=== PATIENT | female | born 1945 | race Caucasian/White ===

== ENCOUNTER 2020-06-07 19:47 | Emergency (ER) | payer MEDICARE, SELFPAY ==
[2020-06-07 19:57] VITALS: PULSE 72; RESP 18; TEMP 36.6; O2SAT 96
--- NOTE | 2020-06-07 22:57 | CTR_ITS ---
PROCEDURE INFORMATION: Exam: CT Head Without Contrast Exam date and time: 06/07/2020 10:58 PM Age: 75 years old Clinical indication: Weakness, extremity; Patient HX: Right sided paresthesia x 1 week TECHNIQUE: Imaging protocol: Computed tomography of the head without contrast. Radiation optimization: All CT scans at this facility use at least one of these dose optimization techniques: automated exposure control; mA and/or kV adjustment per patient size (includes targeted exams where dose is matched to clinical indication); or iterative reconstruction. COMPARISON: No relevant prior studies available. RADIATION DOSE METRICS: Total DLP (mGy-cm): 748.42 FINDINGS: Brain: No acute intracranial hemorrhage or mass effect. There is decreased attenuation in the periventricular white matter, likely from microvascular disease. No definite acute infarct by CT. MRI could be more sensitive/specific for detection, as clinically directed. Ventricles: Ventricle size is normal for age. Bones/joints: No definite acute skull fracture. Sinuses: Included paranasal sinuses are essentially clear. Mastoid air cells: No significant acute finding. Vasculature: Vascular calcifications in the internal carotid arteries. CT/CT head wo con* [id number] IMPRESSION: 1. No acute intracranial hemorrhage or mass effect. 2. Changes of microvascular disease. 3. No definite acute infarct by CT, see above. 4. Other findings discussed above. Radiation Dose CTDIVOL = (mGy): DLP = 748.42 (mGy-cm)
[2020-06-07 23:19] VITALS: BP 263/100; PULSE 66; RESP 14; O2SAT 97
[2020-06-07] MEDS: hyDRALAzine 20 mg/mL INJ 1 mL 10 MG IVP (23:24)
[2020-06-07] MEDS: sodium chloride 0.9% 1,000 ML 999 ML IV (23:24)
--- NOTE | 2020-06-07 23:26 | ED_ITS ---
HPI - General Adult General: Chief complaint: General Medical Stated complaint: r side weakness Time Seen by Provider: 06/07/20 22:51 Source: patient Mode of arrival: ambulatory Limitations: no limitations History of Present Illness: HPI narrative: 75-year-old female who presents with left-sided paresthesias in her hand and feet. She states this is been constant over the last week. She denies any other symptoms. She denies any headache or change in vision. She denies any weakness. She is a diabetic and states that her blood sugars have been a little erratic. She also has a history of high blood pressure and is quite hypertensive here with a blood pressure of 263/100. She denies any headache. Onset (ago): week(s) Location: upper extremity and lower extremity Relieving factors: none Exacerbating factors: none Associated symptoms: Deny chest pain, dyspnea, nausea, rash or vomiting Review of Systems Const: Denies: fever(s), chills, body aches or change in appetite Eyes: Denies: blurry vision or eye discomfort ENMT: Denies: throat pain or dental pain Card: Denies: chest pain Resp: Denies: dyspnea GI: Denies: abdominal pain, nausea, vomiting or diarrhea : Denies: dysuria Musc: Denies: neck pain or back pain Skin/Breast: Denies: rash Neuro: Reports: numbness in extremities Psych: Denies: depression El/Lymph: Denies: easy bruising All/Imm: Denies: urticaria Physical Exam Const: COMMON NORMALS: no acute distress, patient oriented x3 and healthy appearing HENMT: COMMON NORMALS: normocephalic and atraumatic HEAD & SCALP: normocephalic and atraumatic Eye: COMMON NORMALS: Equal, round and reactive pupils present and EOMs intact bilaterally PUPIL: Yes Equal, round and reactive pupils present Neck/C-Spine: COMMON NORMALS: full ROM and supple Chest: COMMONS NORMALS: normal inspection of the chest and normal palpation of entire chest wall Resp: COMMON NORMALS: normal respiratory effort, No retractions, No use of accessory muscles and clear to auscultation bilaterally AUSCULTATION: clear to auscultation bilaterally Cardio: COMMON NORMALS: regular rate, regular rhythm and No murmurs present (Cardio) RATE: regular rate RHYTHM: regular rhythm GI: COMMON NORMALS: Normal to inspection, nondistended, normoactive bowel sounds present, Soft to palpation, non-tender and no masses PALPATION: Yes Soft to palpation Extremity: COMMON NORMALS: normal to inspection and full ROM Neuro: COMMON NORMALS: patient oriented x3, moves all extremities and no focal motor deficits Psych: COMMON NORMALS: mental status grossly normal, Normal thought process present and cooperative THOUGHT PROCESS: Normal thought process present Skin: COMMON NORMALS: no rashes or lesions noted and no wounds GENERAL SKIN EXAM: no rashes or lesions noted Course Vital Signs: Vital signs: Vital Signs Temperature 98 F 06/07/20 19:57 Pulse Rate 75 06/08/20 00:56 Respiratory Rate 18 06/08/20 00:56 Blood Pressure 240/95 06/08/20 00:56 Pulse Oximetry 96 06/08/20 00:56 MDM - General Adult MDM Narrative: Medical decision making narrative: Kiana presents here with paresthesias that is been going on for weeks. Patient has no signs of acute stroke. She is hypertensive but did not take her metoprolol this evening. Her blood pressure is improving here. We will increase her dose of metoprolol at home. Informed her to take her blood pressure 3 times a day and follow-up with her primary care doctor. I informed her to return to ER if her symptoms worsens. She understands agrees to plan. Lab Data: Labs: Lab Results 06/07/20 06/07/20 Range/Units 23:20 23:20 WBC 11.6 H (4.0-10.0) 10^3/ uL RBC 4.73 (4.1-5.3) 10^6/u L Hgb 15.5 H (11.5-15.3) g/dL Hct 47.8 H (37.0-47.0) % MCV 101.1 H (81-99) fL MCH 32.8 (28.0-34.0) pg MCHC 32.4 (30.0-36.0) g/dL RDW 13.3 (12.1-15.1) % Plt Count 185 (130-400) 10^3/c mm MPV 11.9 H (7.4-10.4) fL Neut % (Auto) 49.6 % Lymph % (Auto) 39.5 % [place] % (Auto) 7.9 % Eos % (Auto) 1.8 % Baso % (Auto) 0.8 % Neut # (Auto) 5.73 (1.8-7.7) 10^3/u L Lymph # (Auto) 4.6 (0.8-4.8) 10^3/u L [place] # (Auto) 0.9 (0.2-0.9) 10^3/u L Eos # (Auto) 0.2 (0.0-0.8) 10^3/u L Baso # (Auto) 0.1 (0.0-0.1) 10^3/u L Nucleated RBC % (a uto) 0 % Nucleated RBCs # 0.0 /100WBC Sodium 138 (136-145) mmol/L Potassium 3.8 (3.5-5.1) mmol/L Chloride 101 (98-107) mmol/L Carbon Dioxide 25 (22-29) mmol/L Anion Gap 15.8 (5-19) BUN 10 (8-23) mg/dL Creatinine 0.7 (0.5-0.9) mg/dL GFR Calculation Not Reportable Glucose 100 (65-115) mg/dL Calculated Osmolal ity 282 L (285-295) mOsm/k g Calcium 9.8 (8.5-10.5) mg/dL Total Bilirubin 0.4 (0.15-1.2) mg/dL AST 41 H (0-32) U/L ALT 57 H (0-33) U/L Alkaline Phosphata se 57 (35-105) IU/L Total Protein 7.1 (6.6-8.7) g/dL Albumin 4.6 (3.5-5.2) g/dL Globulin 2.5 (1.3-4.6) g/dL Imaging Data^: CT Head: Attestation: I personally reviewed and interpreted this imaging study as follows: Radiologist's impression: [address] [address] [address] Scan Report Signed Patient: Kiana Mon Unit #: [id number] : 1945 Age/Sex: 75 / F ADM Date: 06/07/20 Loc: ER Room/Bed: Attending Dr: Ordering Provider/Ordering MD: Timur Devi MD Date of Service: 06/07/20 Procedure(s): CT head wo con* [id number] Accession Number(s): [id number] Report Number: [id number] PROCEDURE INFORMATION: Exam: CT Head Without Contrast Exam date and time: 06/07/2020 10:58 PM Age: 75 years old Clinical indication: Weakness, extremity; Patient HX: Right sided paresthesia x 1 week TECHNIQUE: Imaging protocol: Computed tomography of the head without contrast. Radiation optimization: All CT scans at this facility use at least one of these dose optimization techniques: automated exposure control; mA and/or kV adjustment per patient size (includes targeted exams where dose is matched to clinical indication); or iterative reconstruction. COMPARISON: No relevant prior studies available. RADIATION DOSE METRICS: Total DLP (mGy-cm): 748.42 FINDINGS: Brain: No acute intracranial hemorrhage or mass effect. There is decreased attenuation in the periventricular white matter, likely from microvascular disease. No definite acute infarct by CT. MRI could be more sensitive/specific for detection, as clinically directed. Ventricles: Ventricle size is normal for age. Bones/joints: No definite acute skull fracture. Sinuses: Included paranasal sinuses are essentially clear. Mastoid air cells: No significant acute finding. Vasculature: Vascular calcifications in the internal carotid arteries. CT/CT head wo con* [id number] IMPRESSION: 1. No acute intracranial hemorrhage or mass effect. 2. Changes of microvascular disease. 3. No definite acute infarct by CT, see above. 4. Other findings discussed above. Discharge Plan Discharge Patient Disposition: Home, Self-Care Clinical Impression: Paresthesia Hypertension Qualifiers: Hypertension type: essential hypertension Qualified Code(s): I10 - Essential (primary) hypertension Condition: Stable Prescriptions: New metoprolol tartrate 100 mg tablet 100 mg PO BID Qty: 60 RF: 0 Discharge Orders: Discharge Order (Routine); Ordered 06/08/20 Ordered By: Timur Devi Referrals: Kassandra Morillo RESCUE INSTRUCTOR [Primary Care Provider] - 1-3 days Discharge Diet: Advance as tolerated Discharge Activity: Resume usual activity Patient Instructions: Paresthesia (ED), Hypertension (ED) Discharge Date/Time: 06/08/20 00:57 Coding Level of Care Code ED Body Design Checker for Chg Fwd Exam Comprehensive
[2020-06-07 23:41] VITALS: BP 250/99; PULSE 72; RESP 16; O2SAT 99
[2020-06-07 23:42] LABS: Basophils # 0.1 10^3/uL (0.0-0.1); Basophils % 0.8 %; Eosinophils # 0.2 10^3/uL (0.0-0.8); Eosinophils % 1.8 %; Hematocrit 47.8 % (37.0-47.0); Hemoglobin 15.5 g/dL (11.5-15.3); Lymphocytes # 4.6 10^3/uL (0.8-4.8); Lymphocytes % 39.5 %; Mean Corpuscular HGB Conc 32.4 g/dL (30.0-36.0); Mean Corpuscular Hemoglobin 32.8 pg (28.0-34.0); Mean Corpuscular Volume 101.1 fL (81-99); Mean Platelet Volume 11.9 fL (7.4-10.4); Monocytes # 0.9 10^3/uL (0.2-0.9); Monocytes % 7.9 %; Neutrophils # 5.73 10^3/uL (1.8-7.7); Neutrophils % 49.6 %; Nucleated Red Blood Cells % 0 %; Platelet Count 185 10^3/cmm (130-400); Red Blood Count 4.73 10^6/uL (4.1-5.3); Red Cell Distribution Width 13.3 % (12.1-15.1); White Blood Count 11.6 10^3/uL (4.0-10.0)
[2020-06-07 23:54] LABS: Alanine Aminotransferase 57 U/L (0-33); Albumin Level 4.6 g/dL (3.5-5.2); Alkaline Phosphatase 57 IU/L (35-105); Anion Gap 15.8 (5-19); Aspartate Amino Transferase 41 U/L (0-32); Blood Urea Nitrogen 10 mg/dL (8-23); Calcium 9.8 mg/dL (8.5-10.5); Carbon Dioxide 25 mmol/L (22-29); Chloride 101 mmol/L (98-107); Globulin 2.5 g/dL (1.3-4.6); Glucose 100 mg/dL (65-115); Osmolality Calculated 282 mOsm/kg (285-295); Potassium 3.8 mmol/L (3.5-5.1); Sodium 138 mmol/L (136-145); Total Bilirubin 0.4 mg/dL (0.15-1.2); Total Protein 7.1 g/dL (6.6-8.7)
[2020-06-08] MEDS: metoprolol tartrate 50 mg Tablet PO (00:53)
[2020-06-08 00:56] VITALS: BP 240/95; PULSE 75; RESP 18; O2SAT 96
== END 2020-06-08 00:57 | disposition home or self-care (01) ==
PROVIDERS: Emergency Provider Emergency Medicine; PCP Nurse Practitioner
DX: R20.2 Paresthesia of skin (principal); I10 Essential (primary) hypertension
CPT/HCPCS: 12345; 36415; 70450; 80053; 85025; 96361; 96374; 96375; 99282; 99284; J0360; J7030

== ENCOUNTER 2021-02-15 10:40 | Outpatient (CLI) | payer MEDICARE, SELFPAY ==
--- NOTE | 2021-02-15 10:55 | USCV_ITS ---
Kiana Garrett Age: 75 Gender: F : 1945 Exam Date: 02/15/2021 11:11 Ordering Phys: Kassandra Morillo APN Technologist: Kristi Mcgregor [place] [facility] [place]: LAKEISHA, CARDIOMEGALY BP: / HR: 63 Rhythm: Sinus Technical Quality: Technically difficult study MEASUREMENTS (Male / Female) Normal Values 2D ECHO LV Diastolic Diameter PLAX 3.3 cm 4.2 - 5.9 / 3.9 - 5.3 cm LV Systolic Diameter PLAX 1.8 cm LV Chamber Size 3.8 cm IVS Diastolic Thickness 1.7 cm 0.6 - 1.0 / 0.6 - 0.9 cm IVS Systolic Thickness 1.8 cm LVPW Diastolic Thickness 1.6 cm 0.6 - 1.0 / 0.6 - 0.9 cm LVPW Systolic Thickness 2.3 cm RV Chamber Size 2.6 cm LVOT Diameter 2.0 cm LV Ejection Fraction 2D Teich 78.2 % LV Ejection Fraction MOD 2C 51.7 % LV Ejection Fraction 2C AL 51.5 % LA Diameter 3.5 cm LA Width 2.8 cm LA Height 4.5 cm RA Width 2.2 cm RA Height 3.2 cm M-MODE LV Diastolic Diameter MM 4.0 cm 4.2 - 5.9 / 3.9 - 5.3 cm LV Systolic Diameter MM 2.4 cm LV Ejection Fraction MM Teich 72.1 % IVS Diastolic Thickness MM 2.1 cm 0.6 - 1.0 / 0.6 - 0.9 cm IVS Systolic Thickness MM 2.6 cm LVPW Diastolic Thickness MM 1.5 cm 0.6 - 1.0 / 0.6 - 0.9 cm LVPW Systolic Thickness MM 2.3 cm RV Diastolic Diameter MM 2.1 cm Aortic Annulus Diameter 2.7 cm LA Ao Ratio MM 1.4 MV E Point Septal Separation 0.5 cm DOPPLER AV Peak Velocity 135.3 cm/s LVOT Peak Velocity 86.0 cm/s AV Area Cont Eq vti 2.2 cm squared AV Area Cont Eq pk 2.0 cm squared MV Area PHT 3.1 cm squared Mitral E to A Ratio 2.1 MV E' Velocity 56.0 cm/s Mitral E to MV E' Ratio 19.7 Mitral E to LV E' Lateral Ratio 20.5 Mitral E to LV E' Septal Ratio 19.4 TR Peak Velocity 183.2 cm/s TR Peak Gradient 13.4 mmHg TR Mean Velocity 149.2 cm/s TR Mean Gradient 9.3 mmHg TR Velocity Time Integral 49.7 cm TV Peak E Velocity 34.0 cm/s Right Atrial Pressure 3.0 mmHg Pulmonary Artery Systolic Pressu 16.4 mmHg PV Peak Velocity 97.0 cm/s RV Acceleration Time 0.1 s RV Ejection Time 0.3 s RV AcT/ET 0.3 FINDINGS Left Ventricle Normal left ventricular size. LV systolic function is normal with EF of 60-65%.Concentric left ventricular hypertrophy is noted. Grade 2 diastolic dysfunction Right Ventricle The right ventricle is normal in size and function. Right Atrium The right atrium is normal in size. Left Atrium The left atrium is normal in size. Mitral Valve Structurally normal mitral valve without significant stenosis or prolapse. There is no mitral regurgitation. Aortic Valve Grossly normal without significant sclerosis or stenosis. There is no aortic regurgitation. Tricuspid Valve Grossly normal tricuspid valve without significant stenosis or regurgitation. Insufficient TR jet to calculate RVSP Pulmonic Valve Structurally normal pulmonic valve without significant stenosis. There is mild pulmonic regurgitation. Pericardium Normal pericardium without effusion. Aorta Normal ascending aorta dimension. CONCLUSIONS Technically difficult study LV systolic function is normal with EF of 55-60% Grade 2 diastolic dysfunction Concentric left ventricular hypertrophy Mild pulmonic regurgitation No comparison studies are available Nawaf Young MD (Electronically Signed) Final Date: 25 February 2021 21:56 S
== END 2021-02-15 10:41 | disposition home or self-care (01) ==
LOC: US 10:54
PROVIDERS: PCP Nurse Practitioner; Visit Provider Nurse Practitioner
DX: R94.31 Abnormal electrocardiogram [ECG] [EKG] (principal); R00.1 Bradycardia, unspecified; I51.7 Cardiomegaly; I37.1 Nonrheumatic pulmonary valve insufficiency
CPT/HCPCS: 93306

== ENCOUNTER 2021-08-03 16:50 | Emergency (ER) | payer MEDICARE, SELFPAY ==
[2021-08-03 17:12] VITALS: BP 198/69; PULSE 49; RESP 17; TEMP 37; O2SAT 97; BMI 25.7
[2021-08-03 17:19] VITALS: BP 210/101; PULSE 60; RESP 18; TEMP 36.9; O2SAT 98
--- NOTE | 2021-08-03 17:36 | XRR_ITS ---
PROCEDURE INFORMATION: Exam: XR Chest Exam date and time: 08/03/2021 5:36 PM Age: 76 years old Clinical indication: Patient HX: High BP, dizzy; Additional info: Dizziness TECHNIQUE: Imaging protocol: XR of the chest. Views: 1 view. COMPARISON: No relevant prior studies available. FINDINGS: The lungs are clear of infiltrate. There are no pleural effusions or pneumothorax. The heart size and pulmonary vascularity are normal. XR/XR chest 1V portable [id number] IMPRESSION: No active disease.
--- NOTE | 2021-08-03 17:36 | CTR_ITS ---
PROCEDURE INFORMATION: Exam: CT Head Without Contrast Exam date and time: 08/03/2021 5:36 PM Age: 76 years old Clinical indication: Altered mental status/memory loss and dizziness; Confusion or disorientation; Patient HX: C/O weakness, dizziness and confusion TECHNIQUE: Imaging protocol: Computed tomography of the head without contrast. Radiation optimization: All CT scans at this facility use at least one of these dose optimization techniques: automated exposure control; mA and/or kV adjustment per patient size (includes targeted exams where dose is matched to clinical indication); or iterative reconstruction. COMPARISON: CT head wo con* [id number] 06/07/2020 10:59 PM RADIATION DOSE METRICS: Total DLP (mGy-cm): 827.21 FINDINGS: There is mild generalized atrophy. There are mild areas of decreased attenuation in the periventricular white matter which is nonspecific but likely relates to small vessel ischemic change. 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 There are old infarcts involving the cerebellar hemispheres. There is no evidence for acute infarct. There is no evidence for mass. There is no hemorrhage. There are no extra-axial fluid collections. There is no midline shift. The skull is intact. The visualized paranasal sinuses are well aerated. There is atherosclerotic change of the cavernous carotid arteries. CT/CT head wo con* [id number] IMPRESSION: 1. 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 2. No evidence for acute infarct, mass or hemorrhage. Radiation Dose CTDIVOL = (mGy): DLP = 827.21 (mGy-cm)
--- NOTE | 2021-08-03 17:39 | ED_ITS ---
HPI - Dizziness General: Chief Complaint: Dizziness Stated Complaint: PCP SENT FOR HIGH BP AND HIGH BS Time Seen by Provider: 08/03/21 17:36 History of Present Illness: HPI Narrative: 76-year-old female comes in today with complaints of dizziness. Patient reports that on Friday she had cataract surgery and since then she is just not felt well. She thinks she might of had a adverse effect from some of the medication given to her during the surgery. Patient had not been taking her routine blood pressure medication which consists of amlodipine and metoprolol tartrate like she was supposed to. Patient does have 2 female significant others in the room with her that report that patient cares for her at home and sometimes neglects her own care. Patient is cooperative and is appropriate in her answers. Patient does report that she uses her walker to ambulate and does have some episodes of dizziness. Patient does not report any chest pain or difficulty breathing at this time. Family members in the room state that they will assist patient getting back on her medication appropriately. Associated neuro symptoms: Reports confusion Review of Systems General: Reports: 10 or more systems reviewed and unremarkable except in HPI and below Neuro: Reports: dizziness and confusion Physical Exam Const: COMMON NORMALS: no acute distress and patient oriented x3 GENERAL APPEARANCE: cooperative HENMT: COMMON NORMALS: normocephalic and Normal external nose present HEAD & SCALP: normal to inspection and normocephalic NOSE: Normal external nose present MOUTH: Normal oral and palatal mucosa present Eye: GENERAL EYE: appearance normal, both eyes and all related structures Neck/C-Spine: COMMON NORMALS: full ROM Lymph: LYMPHATIC: no lymphadenopathy noted Chest: COMMONS NORMALS: normal inspection of the chest Resp: COMMON NORMALS: normal respiratory effort and clear to auscultation bilaterally EFFORT & INSPECTION: Yes able to speak in complete sentences AUSCULTATION: clear to auscultation bilaterally Cardio: COMMON NORMALS: regular rate and regular rhythm RATE: regular rate RHYTHM: regular rhythm GI: COMMON NORMALS: non-tender : COMMON NORMALS: Yes no CVA tenderness BLADDER/KIDNEY EXAM: Yes no CVA tenderness Back/Pelvis: COMMON NORMALS: no CVA tenderness and thoracic and lumbar spine normal to inspection Extremity: COMMON NORMALS: normal to inspection Neuro: COMMON NORMALS: patient oriented x3 and moves all extremities Psych: COMMON NORMALS: mental status grossly normal and cooperative Skin: COMMON NORMALS: no rashes or lesions noted GENERAL SKIN EXAM: no rashes or lesions noted Course ED course: Patient reports feeling better after a dose of Zofran and clonidine. Patient has been resting well. CT of the head noted some prior infa rcts but no acute changes. Blood pressure has come down to 181 systolic. Remainder of labs are unremarkable. Patient BNP is slightly elevated to 2650 but her chest x-ray was normal. Vital Signs: Vital signs: Vital Signs Temperature 98.4 F 08/03/21 17:19 Pulse Rate 60 08/03/21 17:19 Respiratory Rate 18 08/03/21 17:19 Blood Pressure 210/101 08/03/21 17:19 Pulse Oximetry 98 08/03/21 17:19 MDM - Dizziness MDM Narrative: Medical decision making narrative: Patient was referred to the ER by her primary care for concerns of elevated blood pressure. The family reported they called the primary care office and reviewed her blood pressures with them and they recommended she be evaluated in the ER. Patient had cataract surgery on Friday and had been not taking her medications as she is supposed to. Patient did admit though she has not been taking her medications since April. Daughters in the room stated they were going to work with her mother in order to get her back on a set schedule for her medicines. On exam lungs were clear to auscultation heart rate was regular. Patient's blood pressure on arrival was 198/69. Skin was warm and dry. Respirations were even. Differential diagnosis includes but not limited to stroke syndrome, adverse effect of medication, hypertension, poor compliance to medications. Patient was given a dose of Zofran which helped her dizziness. Patient was also given 1 clonidine which brought her blood pressure better under control into the 180s systolic. The daughter stated that they did give her her amlodipine and metoprolol prior to bringing her to the ER. CT of the head did show some old infarcts but nothing acute at this time. Laboratory values did note a mild elevation in her BNP at 2650 and a troponin high-sensitivity at 23. I do not think there is anything acute going on here her chest x-ray was normal. And the rest of her labs were unremarkable. Think patient's probably runs a troponin high-sensitivity in the 20s due to her poor compliance to blood pressure management and the BNP is also elevated due to this poor compliance. The daughters state that they will work with her mother regarding her medication regimen and ensure that she is taking her meds more appropriately. Mother at this time lives with her at home which she is a primary caregiver for. He has dementia. On Friday the is going to be placed into a jail due to his worsening condition. Patient and family both report understanding of care plan and need for follow-up and return to the ER for worsening of condition. Lab Data: Labs: Lab Results 08/03/21 08/03/21 08/03/21 Range/Units 18:10 18:10 18:10 WBC 12.7 H (4.0-10.0) 10^3/ uL RBC 4.83 (4.1-5.3) 10^6/u L Hgb 15.8 H (11.5-15.3) g/dL Hct 46.6 (37.0-47.0) % MCV 96.5 (81-99) fl MCH 32.7 (28.0-34.0) pg MCHC 33.9 (30.0-36.0) g/dL RDW 13.1 (12.1-15.1) % Plt Count 187 (130-400) 10^3/c mm MPV 12.1 H (7.4-10.4) fL Neut % (Auto) 56.8 % Lymph % (Auto) 34.9 % [place] % (Auto) 6.6 % Eos % (Auto) 0.5 % Baso % (Auto) 0.6 % Neut # (Auto) 7.22 (1.8-7.7) 10^3/u L Lymph # (Auto) 4.4 (0.8-4.8) 10^3/u L [place] # (Auto) 0.8 (0.2-0.9) 10^3/u L Eos # (Auto) 0.1 (0.0-0.8) 10^3/u L Baso # (Auto) 0.1 (0.0-0.1) 10^3/u L Nucleated RBC % (a uto) 0 % Nucleated RBCs # 0.0 /100WBC PT 13.40 (12.1-14.9) SECO NDS INR 0.99 (0.8-1.2) APTT 29.9 (23.9-36.7) SECO NDS Sodium 137 (136-145) mmol/L Potassium 3.8 (3.5-5.1) mmol/L Chloride 99 (98-107) mmol/L Carbon Dioxide 24 (22-29) mmol/L Anion Gap 17.8 (5-19) BUN 16 (8-23) mg/dL Creatinine 0.6 (0.5-0.9) mg/dL GFR Calculation Not Reportable Glucose 172 H (65-115) mg/dL Calculated Osmolal ity 289 (285-295) mOsm/k g Lactate (0.5-2.2) mmol/L Calcium 9.7 (8.5-10.5) mg/dL Total Bilirubin 0.5 (0.15-1.2) mg/dL AST 30 (0-32) U/L ALT 33 (0-33) U/L Alkaline Phosphata se 56 (35-105) IU/L Troponin T Baselin e (0-10) ng/L NT-Pro-B Natriuret Pep 2650 H (0-450) pg/mL Total Protein 6.5 L (6.6-8.7) g/dL Albumin 4.3 (3.5-5.2) g/dL Globulin 2.2 (1.3-4.6) g/dL 08/03/21 08/03/21 Range/Units 18:10 18:10 WBC (4.0-10.0) 10^3/ uL RBC (4.1-5.3) 10^6/u L Hgb (11.5-15.3) g/dL Hct (37.0-47.0) % MCV (81-99) fl MCH (28.0-34.0) pg MCHC (30.0-36.0) g/dL RDW (12.1-15.1) % Plt Count (130-400) 10^3/c mm MPV (7.4-10.4) fL Neut % (Auto) % Lymph % (Auto) % [place] % (Auto) % Eos % (Auto) % Baso % (Auto) % Neut # (Auto) (1.8-7.7) 10^3/u L Lymph # (Auto) (0.8-4.8) 10^3/u L [place] # (Auto) (0.2-0.9) 10^3/u L Eos # (Auto) (0.0-0.8) 10^3/u L Baso # (Auto) (0.0-0.1) 10^3/u L Nucleated RBC % (a uto) % Nucleated RBCs # /100WBC PT (12.1-14.9) SECO NDS INR (0.8-1.2) APTT (23.9-36.7) SECO NDS Sodium (136-145) mmol/L Potassium (3.5-5.1) mmol/L Chloride (98-107) mmol/L Carbon Dioxide (22-29) mmol/L Anion Gap (5-19) BUN (8-23) mg/dL Creatinine (0.5-0.9) mg/dL GFR Calculation Glucose (65-115) mg/dL Calculated Osmolal ity (285-295) mOsm/k g Lactate 1.3 (0.5-2.2) mmol/L Calcium (8.5-10.5) mg/dL Total Bilirubin (0.15-1.2) mg/dL AST (0-32) U/L ALT (0-33) U/L Alkaline Phosphata se (35-105) IU/L Troponin T Baselin e 23 H (0-10) ng/L NT-Pro-B Natriuret Pep (0-450) pg/mL Total Protein (6.6-8.7) g/dL Albumin (3.5-5.2) g/dL Globulin (1.3-4.6) g/dL Discharge Plan Discharge Patient Disposition: Home Clinical Impression: Not taking medication as directed Hypertension Qualifiers: Hypertension type: unspecified Qualified Code(s): I10 - Essential (primary) hy pertension Condition: Stable Prescriptions: No Action metoprolol tartrate 100 mg tablet 100 mg PO BID Qty: 60 RF: 0 Discharge Orders: Discharge ED (Routine); Ordered 08/03/21 Ordered By: Shaggy Allen Referrals: Kassandra Morillo APN [Primary Care Provider] - Discharge Diet: Usual diet Discharge Activity: Increase activity as tolerated Patient Instructions: Hypertension (ED), Opioid Safety Activity Restrictions/Additional Instructions: Home and rest. Continue routine medications as prescribed. Follow-up with primary care in 3 days for recheck. Return to the ER for worsening symptoms or new concerns. Coding Level of Care Code ED Social Services Assistant for Hollyg Fwd Exam Comprehensive
--- NOTE | 2021-08-03 17:39 | ECG_ITS ---
[facility] Test Date: 2021-08-03 Pat Name: Kiana Garrett Department: Room: Gender: Female Printed Circuit Board Assembler: : 1945 Requested By: Shaggy Horne Order Number: [id number] Ivelisse MD: Kennedi Delcid M.D. Measurements Intervals [place] Rate: 48 P: 62 NV: 182 QRS: 50 QRSD: 91 T: 182 QT: 465 QTc: 415 Interpretive Statements SINUS BRADYCARDIA LEFT VENTRICULAR HYPERTROPHY AND ST-T CHANGE [VOLTAGE CRITERIA PLUS ST/T ABNORMALITY] No previous ECG available for comparison Electronically Signed On 08-04-2021 8:37:43 CDT by Kennedi Delcid M.D. [id number]
[2021-08-03] MEDS: ondansetron 2 mg/ML SDV 2 mL 4 MG IVP (18:15)
[2021-08-03] MEDS: cloNIDine 0.1 mg Tablet PO (18:20)
[2021-08-03 18:34] LABS: Basophils # 0.1 10^3/uL (0.0-0.1); Basophils % 0.6 %; Eosinophils # 0.1 10^3/uL (0.0-0.8); Eosinophils % 0.5 %; Hematocrit 46.6 % (37.0-47.0); Hemoglobin 15.8 g/dL (11.5-15.3); Lymphocytes # 4.4 10^3/uL (0.8-4.8); Lymphocytes % 34.9 %; Mean Corpuscular HGB Conc 33.9 g/dL (30.0-36.0); Mean Corpuscular Hemoglobin 32.7 pg (28.0-34.0); Mean Corpuscular Volume 96.5 fl (81-99); Mean Platelet Volume 12.1 fL (7.4-10.4); Monocytes # 0.8 10^3/uL (0.2-0.9); Monocytes % 6.6 %; Neutrophils # 7.22 10^3/uL (1.8-7.7); Neutrophils % 56.8 %; Nucleated Red Blood Cells % 0 %; Platelet Count 187 10^3/cmm (130-400); Red Blood Count 4.83 10^6/uL (4.1-5.3); Red Cell Distribution Width 13.1 % (12.1-15.1); White Blood Count 12.7 10^3/uL (4.0-10.0)
[2021-08-03 18:46] LABS: INR 0.99 (0.8-1.2)
[2021-08-03 18:47] LABS: Partial Thromboplastin Time 29.9 SECONDS (23.9-36.7)
[2021-08-03 18:54] LABS: Lactate (Lactic Acid level) 1.3 mmol/L (0.5-2.2)
[2021-08-03 18:57] LABS: Troponin(5th) Baseline 23 ng/L (0-10)
[2021-08-03 19:05] LABS: Alanine Aminotransferase 33 U/L (0-33); Albumin Level 4.3 g/dL (3.5-5.2); Alkaline Phosphatase 56 IU/L (35-105); Anion Gap 17.8 (5-19); Aspartate Amino Transferase 30 U/L (0-32); Blood Urea Nitrogen 16 mg/dL (8-23); Calcium 9.7 mg/dL (8.5-10.5); Carbon Dioxide 24 mmol/L (22-29); Chloride 99 mmol/L (98-107); Creatinine Clr Calc Pharmacy 55.8143; Globulin 2.2 g/dL (1.3-4.6); Glucose 172 mg/dL (65-115); NT Pro B Type Natriuretic Pept 2650 pg/mL (0-450); Osmolality Calculated 289 mOsm/kg (285-295); Potassium 3.8 mmol/L (3.5-5.1); Sodium 137 mmol/L (136-145); Total Bilirubin 0.5 mg/dL (0.15-1.2); Total Protein 6.5 g/dL (6.6-8.7)
[2021-08-03 19:34] VITALS: BP 174/94; PULSE 55; RESP 18; O2SAT 95
== END 2021-08-03 19:36 | disposition home or self-care (01) ==
PROVIDERS: Emergency Provider Nurse Practitioner Family; PCP Nurse Practitioner
DX: I10 Essential (primary) hypertension (principal); Z91.14 Patient's other noncompliance with medication regimen
CPT/HCPCS: 70450; 71045; 80053; 83605; 83880; 84484; 85025; 85610; 85730; 93005; 96374; 99283; J2405